=== PATIENT | female | born 1960 | race Caucasian/White ===

== ENCOUNTER → 2018-01-07 12:29 | Outpatient (CLI) | payer BC, SELFPAY ==
--- NOTE | 2018-01-07 12:33 | BI_ITS ---
MAMMOGRAPHY - BILATERAL SCREENING REASON FOR EXAM: Female, 57 years old. Routine annual screening examination. PERTINENT HISTORY: Non-contributory. Prior left breast reduction. Occasional lateral left breast tenderness. TECHNIQUE: Digital bilateral breast elijah (3D mammographic acquisition) in the CC and MLO projections. 2-D mediolateral oblique (MLO) and craniocaudad (CC) views of both breasts were obtained. CAD: Full Field Digital Mammography with Computer Added Detection was performed. COMPARISON: Comparison is made with prior study dated December 12, 2016 and April 23, 2015. FINDINGS: Breast Composition: There are scattered areas of fibroglandular density. There are no dominant masses or suspicious calcifications. Stable small bilateral axillary lymph nodes. No other significant abnormalities are identified. There has been no significant change since the prior study. BI/SCREENING MAMM (CAD), BILAT IMPRESSION: Stable bilateral screening mammogram. Yearly follow-up mammogram recommended. (A) ASSESSMENT CATEGORY: BIRADS Category 2: Benign. A letter regarding these results will be sent to the patient by the facility within 30 days. Approximately 10% of breast cancers are not detected by mammography. A normal mammogram should not delay biopsy of a clinically suspicious abnormality. [id number] Electronically Signed: Lamonte Ontiveros MD at 14:34 EDT Tel [phone], Service support ,
--- NOTE | 2018-01-07 12:33 | BD_ITS ---
STUDY: DUAL ENERGY X-RAY ABSORPTIOMETRY / DXA REASON FOR EXAM: Female, 57 years old. The patient is postmenopausal. Loss of height. TECHNIQUE: Bone Mineral Density (BMD) measurements of lumbar spine and bilateral hips were obtained. COMPARISON: None. FINDINGS: Lumbar Spine (L1-L4): g/cm2 (1.157) / T-score (-0.4) / Z-score (0.6) Findings are suggestive of normal bone density with a low fracture risk. Left Femur Total: g/cm2 (0.996) / T-score (-0.1) / Z-score (0.6) Left Femoral Neck: g/cm2 (0.946) / T-score (-0.7) / Z-score (0.4) Right Femur Total: g/cm2 (1.014) / T-score (0.1) / Z-score (0.8) Right Femoral Neck: g/cm2 (0.946) / T-score (-0.7) / Z-score (0.4) BD/Dexa Bone Density Study IMPRESSION: The patient is considered normal as outlined below according to World Ryan Organization (WHO) criteria with a low fracture risk. Reference Information: The T-score is the number of standard deviations above or below the standard which is normal for young adults at their peak bone mineral density. The World Health Organization (WHO) interprets the T-scores as follows: Above -1 Normal bone density Between -1 and -2.5 Osteopenia Equal to / or below -2.5 Osteoporosis As a practical clinical guideline, osteopenia may be graded as follows: Mild -1 through -1.5 Moderate -1.6 through -2.0 Severe -2.1 through -2.4 The Z-score is the number of standard deviations above or below age-matched controls. A Z-score of less than -1.5 would be considered abnormal. References: 1. NIH Osteoporosis and Related Bone Diseases http://www.osteo.org 2. International Society for Clinical Densitometry http://www.iscd.org 3. National Osteoporosis Foundation http://www.nof.org Electronically Signed: Lamonte Ontiveros MD at 15:27 EDT Tel [phone], Service support ,
== END ==
PROVIDERS: Family Provider Internal Medicine; PCP Internal Medicine; Visit Provider Internal Medicine
DX: Z12.31 Encounter for screening mammogram for malignant neoplasm of breast (principal); Z78.0 Asymptomatic menopausal state
CPT/HCPCS: 77063; 77067; 77080

== ENCOUNTER 2018-07-09 18:50 | Emergency (ER) | payer BC, SELFPAY ==
[2018-07-09 18:50] VITALS: BP 166/93; PULSE 99; RESP 18; TEMP 38.2; O2SAT 98; BMI 34.5
--- NOTE | 2018-07-09 19:16 | CT_ITS ---
STUDY: CT ABDOMEN AND PELVIS WITHOUT CONTRAST REASON FOR EXAM: Female, 58 years old. Right flank pain. Discolored urine. RADIATION DOSAGE (If Supplied By Facility): CTDIvol = ( 18.29 ) mGy, DLP = ( 904.56 ) mGycm TECHNIQUE: Transaxial images were obtained from the dome of the diaphragm to the symphysis pubis without oral contrast, and without intravenous contrast. Sagittal and coronal images were reconstructed. Individualized dose optimization techniques were used for this CT. COMPARISON: None. FINDINGS: The visualized lung bases are unremarkable. The visualized portions of the heart are within normal limits. There is elongation of the right lobe of the liver consistent with a Dakotah's lobe. There is non-visualization of the gallbladder, which may be secondary to either contraction or a prior cholecystectomy. There is mild dilatation of the biliary ductal system suggesting prior cholecystectomy. Normal spleen. Normal pancreas. Normal bilateral adrenal glands. There is a 3 mm nonobstructing calculus in the mid right kidney. The right kidney is otherwise unremarkable. Normal visualized right ureter. Normal left kidney. Normal visualized left ureter. Normal visualized stomach. Normal small intestine. Descending and sigmoid diverticulosis without acute inflammatory change. The proximal colon is unremarkable. There are surgical clips in the region of the appendix consistent with a prior appendectomy. Normal abdominal aorta. Normal inferior vena cava. Normal retroperitoneum. Normal urinary bladder. Normal vaginal cuff. There are phleboliths in the pelvis without lymphadenopathy. No free air or free fluid is seen within the peritoneal cavity. Normal abdominal wall. There are diffuse degenerative changes of the visualized lumbar spine. CT/Abdomen/Pelvis without Cont IMPRESSION: 1. Nonobstructing right renal calculus. There is no other evidence of renal, ureteral or urinary bladder abnormality. 2. Sigmoid diverticulosis without acute inflammatory change. 3. 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 4. Degenerative changes of the lumbar spine. 5. Status post cholecystectomy, hysterectomy and appendectomy. Electronically Signed: Vikram Vásquez DO at 21:15 EST Tel [phone], Service support ,
[2018-07-09 19:22] LABS: Mucous, Urine 0 SEEN /hpf (<or=2+)
[2018-07-09 19:30] LABS: Color, Urine Amber (Yellow); Glucose, Dipstick Normal (Normal); Ketone-Dipstick 5 mg/dl (Negative); Leukocyte Esterase-Dipstick 500 /ul (Negative); Nitrite-Dipstick Positive (Negative); Occult Blood-Urine 250 /ul (Negative); Protein-Dipstick 100 mg/dl (Negative); Urine Bilirubin Dipstick Negative (Negative); Urine Clarity Cloudy (Clear); Urine Urobilinogen 1 mg/dl (Normal)
[2018-07-09] MEDS: 0.9% Normal Saline 1,000 ML 150 ML IV (19:30)
[2018-07-09] MEDS: Acetaminophen 500 MG Tablet 1000 MG PO (19:30)
[2018-07-09] MEDS: Ondansetron 4 MG/2 ML Vial IV (19:31)
[2018-07-09] MEDS: Morphine 4 MG/ML Syringe IV (19:32)
[2018-07-09 19:34] VITALS: BP 151/92; PULSE 89; RESP 20; TEMP 38.2; O2SAT 95
[2018-07-09 19:39] LABS: Bacteria 1+ /hpf (None Seen); Red Blood Cells-Urine 50-100 SEEN /hpf (0-5); Squamous Epithelial Cells - UA 0-5 SEEN /hpf (5-10); White Blood Cells >100 SEEN /hpf (0-5)
[2018-07-09 19:45] LABS: Absolute Lymphocyte Count 1.98 X10^3/ul (0.83-4.51); Absolute Neutrophil Count 10.1 X10^3/uL (2.0-7.7); Basophil# 0.03 X10^3/uL; Basophil% 0.2 % (0-1); Eosinophil# 0.11 X10^3/uL; Eosinophils% 0.8 % (0-5); Hematocrit 44.9 % (37-47); Hemoglobin 14.8 g/dl (12.0-15.0); Lymphocyte # 1.98 X10^3/ul (4.0); Lymphocyte % 15.1 % (19-41); Mean Corpuscular Hgb 30.4 pg (27.0-32.0); Mean Corpuscular Volume 92.2 fL (81-99); Mean Platelet Vol. 10.2 fl (6.2-12.0); Monocyte% 6.1 % (0-10); Neutrophil # 10.12 X10^3/uL (2.7-7.7); Neutrophil % 77.5 % (47-70); Platelet Count 296 K/mm3 (150-450); RBC Distribution Width CV 13.8 % (11.6-14.6); RBC Distribution Width SD 46.4 fl (35.1-43.9); Red Blood Count 4.87 M/mm3 (4.2-5.4); White Blood Count 13.1 K/mm3 (4.4-11.0)
[2018-07-09 19:57] LABS: POSITIVE COUNT NO; POSITIVE DIFFERENTIAL NO; POSITIVE MORPHOLOGY NO
[2018-07-09] MEDS: Ceftriaxone 1 GM/50 ML BAG IV (20:01)
[2018-07-09 20:10] LABS: Anion Gap 7 (5-15); BUN 21 mg/dL (7-18); BUN/Creat Ratio 16.7 RATIO (10-20); Calcium,Total 9.9 mg/dL (8.5-10.1); Chloride 102 mmol/L (98-107); Creatinine, Serum 1.26 mg/dL (0.55-1.02); EST Glomerular Filtration Rate 47 mL/min (>60); Est Glom Filt Rate - Afr Amer 56 mL/min (>60); Estimated Creatinine Clearance 44.33 ml/min; Glucose 127 mg/dL (74-106); Potassium 4.2 mmol/L (3.5-5.1); Sodium Level 137 mmol/L (136-145)
[2018-07-09 21:44] VITALS: BP 109/62; PULSE 75; RESP 16; TEMP 37.6; O2SAT 95
--- NOTE | 2018-07-09 22:06 | ED.DCSUM_ITS ---
- ER Visit Summary Date of Service: 07/09/18 Chief Complaint: Right flank pain History of Present Illness: The patient is a 58 F with bronchitis and URI symptoms over the past 5 days. She developed lower abdominal pain and cramping earlier today. Tonight the pain developed more in the right flank region and she is concerned she has a kidney stone. She does note recent strong odor to her urine. She denies any dysuria. Tonight she noted blood in her urine and a low-grade fever. Physical Examination: Blood pressure is 166/93, temperature 100.7, heart rate 99, respiratory rate 18, pulse ox 98% on room air. Patient is sitting upright in bed. She is nontoxic appearing. Head neck examination unremarkable. Heart is regular rate and rhythm. Lung sounds are clear. Abdomen is soft with minimal tenderness in the right lower quadrant. There is no CVA tenderness on exam. There is no overlying skin change. Test Results: CBC was a white count of 13.1 with 77% neutrophils. Chemistry studies reveal glucose of 127, BUN 21, creatinine 1.26. Urinalysis is positive for nitrites, greater than 100 white cells, 50-100 RBCs, and 1+ bacteria. CT flank shows nonobstructing right renal calculi. There is no ureteral or bladder abnormality. Emergency Department Course and Treatment: Patient was given morphine, Zofran, Tylenol, and IV fluids. Upon completion of the urinalysis she is given a dose of IV Rocephin. Urine was sent for a culture. She is treated with a 10-day course of Bactrim. Blood pressure at time of discharge is 118/75. Treatment Plan: [] Disposition: Discharge Impression: Pyelonephritis This note was generated with [employer] dictation software. It may contain incorrect words, spelling, and punctuation that were not noted in review of the chart prior to signing ED Disposition - Plan for ED Patient: Disposition: Home or Assisted Living Chief Complaint: Flank Pain Instructions: ED Kidney Infec Female Prescriptions: Smz/Tmp Ds [Bactrim Ds] 1 tablet PO BID #20 tablet Referrals: Dominique Haynes DO [Primary Care Provider] - 5-7 Days
[2018-07-09 22:20] VITALS: BP 118/75; PULSE 82; RESP 18; O2SAT 93
== END 2018-07-09 22:20 | disposition home or self-care (01) ==
PROVIDERS: Emergency Provider Emergency Medicine; Family Provider Internal Medicine; PCP Internal Medicine
DX: N12 Tubulo-interstitial nephritis, not specified as acute or chronic (principal); Z87.442 Personal history of urinary calculi
CPT/HCPCS: 74176; 80048; 81001; 85025; 87086; 87088; 87186; 96361; 96365; 96375; 99285; J7030; J7040; A4216; J2405

== ENCOUNTER 2018-12-07 11:37 | Emergency (ER) | payer BC, SELFPAY ==
[2018-12-07 11:38] VITALS: BP 132/83; PULSE 88; RESP 16; TEMP 36.6; O2SAT 96; BMI 34.3
--- NOTE | 2018-12-07 13:04 | RAD_ITS ---
STUDY: X-RAY - RIGHT ANKLE REASON FOR EXAM: Female, 58 years old. Pain, no injury TECHNIQUE: 3 view(s) of the ankle. COMPARISON: None. FINDINGS: Normal visualized distal tibia and fibula. Normal medial and lateral malleoli. Normal tibiotalar articulation and ankle mortise. Normal visualized talus and calcaneus. There is calcaneal enthesopathy. The visualized subtalar, talonavicular, calcaneocuboid and tarsal articulations are normal. The soft tissue structures are unremarkable. RAD/Ankle min 3 Views IMPRESSION: No fracture or dislocation Electronically Signed: Torito Cartagena, at 13:40 EDT Tel , Service support ,
--- NOTE | 2018-12-07 14:05 | ED.VISSUMM ---
- ER Visit Summary Date of Service: 12/07/18 Chief Complaint: Right ankle pain History of Present Illness: The patient is a 58 F who presents the emergency department with 1 month of an ache in her anterior right ankle. She states that today it became more sharp. Spencer like a knife. She has appoint with her brass sorter on but could not wait that she was concerned that she may get this pain while driving. She has a history of a bone spur on the left ankle. She sees podiatry in [place]. Physical Examination: Afebrile vital signs are stable Gen: Well-nourished well-developed Head: Normocephalic atraumatic Eyes: Perrl EOMI ENT: TMs clear no rhinorrhea moist mucous membranes Neck: Supple no lymphadenopathy no JVD nontender CVS: Regular rate rhythm no murmurs normal S1-S2 Respiratory: No distress clear to auscultation bilaterally chest nontender Abdomen: Soft nontender nondistended normal bowel sounds no masses Back: Nontender Extremity: Nontender no edema no deformities. No ecchymosis. Tendon function appears normal. She has no pain with movement against resistance with inversion eversion flexion or extension. Skin: Normal color no rash Neuro: alert orientated ?3 CN II-XII intact normal strength sensation reflexes gait cerebellar Psych: Normal affect normal mood Test Results: X-rays of the ankle were negative. I see no bone spurs. No significant arthritic changes Emergency Department Course and Treatment: I informed the patient of her findings on x-ray. She states that she would like to be discharged that she called her brass sorter from the emergency room and they said they could see her sooner she was discharged. Impression: 1. Right ankle pain This note was generated with [employer] dictation software. It may contain incorrect words, spelling, and punctuation that were not noted in review of the chart prior to signing ED Disposition - Plan for ED Patient: Disposition: Home or Assisted Living Instructions: ED Joint Pain Additional Instructions: Follow-up with your brass sorter as scheduled
== END 2018-12-07 14:13 | disposition home or self-care (01) ==
PROVIDERS: Emergency Provider Emergency Medicine; Family Provider Internal Medicine; PCP Internal Medicine
DX: M25.571 Pain in right ankle and joints of right foot (principal)
CPT/HCPCS: 73610; 99282

== ENCOUNTER → 2019-03-21 12:02 | Outpatient (CLI) | payer BC, SELFPAY ==
--- NOTE | 2019-03-21 12:04 | BI_ITS ---
MAMMOGRAPHY - BILATERAL SCREENING REASON FOR EXAM: Female, 58 years old. Routine annual screening examination. PERTINENT HISTORY: Non-contributory. Remote left breast reduction. TECHNIQUE: Digital bilateral breast lv (3D mammographic acquisition) in the CC and MLO projections. 2-D mediolateral oblique (MLO) and craniocaudad (CC) views of both breasts were obtained. CAD: Full Field Digital Mammography with Computer Added Detection was performed. COMPARISON: Comparison is made with prior study dated January 07, 2018 and December 12, 2016. FINDINGS: Breast Composition: There are scattered areas of fibroglandular density. There are no dominant masses or suspicious calcifications. No other significant abnormalities are identified. There has been no significant change since the prior study. BI/SCREEN MAMM (CAD) W/LV BILAT IMPRESSION: Stable bilateral screening mammogram. Yearly follow-up mammogram recommended. (A) ASSESSMENT CATEGORY: BIRADS Category 1: Negative. A letter regarding these results will be sent to the patient by the facility within 30 days. Approximately 10% of breast cancers are not detected by mammography. A normal mammogram should not delay biopsy of a clinically suspicious abnormality. [id number] Electronically Signed: Lamonte Ontiveros, at 13:41 EDT , Service support ,
== END ==
PROVIDERS: Family Provider Internal Medicine; PCP Internal Medicine; Referring Provider Internal Medicine; Visit Provider Internal Medicine
DX: Z12.31 Encounter for screening mammogram for malignant neoplasm of breast (principal)
CPT/HCPCS: 77063; 77067

== ENCOUNTER 2019-06-03 16:00 | Outpatient (RCR) | payer OTHER, BC, SELFPAY ==
[2019-05-05 15:16] VITALS: BMI 35.9
--- NOTE | 2019-05-16 17:39 | HP.PTEVAL_ITS ---
Patient's Visit Information NEREIDA CLAROS is a 59 year old F referred to Physical Therapy by ELDER Almaraz with a diagnosis of STRAIN OF MUSCEL AND TENDON OF UNSPECIFIED WALL OF THORAX. Date of Evaluation: 05/16/19 Physical Therapist: Ehsan Vaughan, PT, Cert MDT, OCS - Visit Plan Frequency: 3x /Week Duration: 4 Weeks Plan: PT INTERVENTIONS WITH THORACIC /POSTURAL EX'S,SCAPULAR STRENGTHENING,MODALTIES FOR PAIN ,MANUAL THERAPY - Subjective Findings: This 59 y/o female presents to physical therapy with strain of thoracic. Patient injuried upper back lifting tubs of meat on 04/04/19 . Symptoms became worse overtime at work eventually seen PA at [facility] on 04/21/19 provided muscle relaxers and naprozan. Then RTD on 05/05/19 recommended PT. Patient is on light duty no lifting miore than 10 # . Location left scapular of thoracic spine. Aggravating factors lifting to included OH/reaching and moving arm with pinching.Allevating factors MEDS. Unable to sleep on left side,thus symptoms affects sleeping. Patienthas parathesia scapular. Patient pain affects ability to return to work and ADL'S. Patient pain affects QOL and funtion. SOCIAL: . VOCATION: [employer] - Pain Back Pain Intensity (Out of 10): 7 Comment: thoracic Left Scapula Pain Intensity (Out of 10): 7 Pain Intensity Range: 10 - Objective POSTURE: mild posture rounded shoulders. NEURU: denies parathesia/tingling ,reflexes C5-6-7 2/3. PALPATION: tender medial scapular. CERVICAL ROM: flexion WFL,extension min loss,rotation min loss,lateral flexion min loss with pain on left UT]. AROM: shoulder flexion WFL 155 degrees. MMT: GROSSLY 4/5 except shoulder 4-/5 ,pian left scapular. THORACIC ROM: flexion mod loss,extension /rotation mod loss - Special Tests C/S Radiculapathy - Left Upper limb tension test: Negative C/S Radiculapathy - Right Upper limb tension test: Negative C/S Radiculapathy - Left Spurlings: Positive C/S Radiculapathy - Right Spurlings: Negative C/S Radiculapathy - Left Cervical distraction: Negative C/S Radiculapathy - Right Cervical distraction: Negative L Shoulder Drop Sign - IS Test: Negative L Shoulder Empty Can - SS: Negative L Shoulder Neer - Impingement: Negative L Shoulder Franco Carter - Impingement: Negative - Goals Goal 1:: Patient to be Independant with HEP Goal Time Frame: 4-6 Weeks Goal 2:: Patient to decrease left scapular and thoracic pain by 60% or> to imporove function RTW Goal Time Frame: 4-6 Weeks Goal 3:: Patient to increase strength of left shoulder 4/5 to improve function without pain. Goal Time Frame: 4-6 Weeks Goal 4:: Patient to improve spine owestry scor by 5-10 pints to improve QOL for RTW. Goal Time Frame: 4-6 Weeks Goal 5:: Patient to RTW without limitations Goal Time Frame: 4-6 Weeks - Rehabilitation Potential Physical Therapy Diagnosis: This patient fas left thoracic stain affecting left UE with job demands,lifting due to mpain weakness of left arm thus unable to RTW full duty Rehabilitation Potential: Good - Anticipated Interventions Patient/Client Instruction: Educate patient on: Condition, Plan of Care For the Purpose of:: To decrease pain, To increase ROM, To improve muscle performance and motor function, To improve ability to perform ADL's, To increase tolerance to activity/condition/position, To improve ability of physical actions for home/community/work/leisure, To improve health of tissue, To decrease soft tissue restriction, To increase flexibility/ROM, To improve ability to perform tasks related to life management Therapeutic Exercise to Include: Strength training, Postural training, Fl exibilty training, Active ROM, Scapular Strength/Stabilization For the Purpose of:: To decrease pain, To increase ROM, To improve muscle performance and motor function, To improve ability to perform ADL's, To increase tolerance to activity/condition/position, To improve ability of physical actions for home/community/work/leisure, To improve health of tissue, To decrease soft tissue restriction, To increase flexibility/ROM, To reduce risk of recurrence Manual Therapy Techniques to Include: Soft tissue mobilization Comment: SCAPULAR /UT For the Purpose of:: To decrease pain, To increase ROM, To improve nutrient delivery to tissue, To increase oxygenation perfusion, To improve health of tissue, To decrease soft tissue restriction TENS: Yes IF ES: Yes Cryotherapy (ice pack, ice massage): Yes Thermo therapy (hot pack): Yes Ultrasound (thermal/non thermal): Yes For the Purpose of:: To decrease pain, To decrease swelling/inflammation, To increase ROM, To improve nutrient delivery to tissue, To increase oxygenation perfusion, To improve health of tissue, To decrease soft tissue restriction Thank you for the opportunity to evaluate your patient. For Medicare and Medicare HMO plans, please review the plan of care and approve it. It will need to be FAXED BACK to us at [phone] for Medicare purposes. For Medicare only, by signing this I certify the plan of care. Please let me know if there are questions or concerns regarding this plan of care. Physician Signature: Date:
--- NOTE | 2019-06-07 10:32 | HP.PTDCSUM ---
HP - PT D/C Summary It has been my pleasure to treat NEREIDA CLAROS under orders from ELDER Almaraz, for the diagnosis of STRAIN OF MUSCLE AND TENDON OF UNSPECIFIED WALL OF THORAX for a total of 6 visit(s). Discharge Date: 06/07/19 Please see the following information for a summary of their discharge status. - Subjective Subjective: pt discussed w/ PT that this is her last session er the DR. pt filled out the DASH report. - Pain Back Pain Intensity (Out of 10): 0 Left Scapula Pain Intensity (Out of 10): 0 - Overall Improvement % Improvement: 80 - Objective Objective/Function: POSTURE: WFL. AROM: WNL. MMT: R -SHOULDER 4/5. THORACIC ROM: WFL - Goals Goal 1:: Patient to be Independant with HEP Goal Progress: Goal Met Goal 2:: Patient to decrease left scapular and thoracic pain by 60% or> to imporove function RTW Goal Progress: Goal Met Goal 3:: Patient to increase strength of left shoulder 4/5 to improve function without pain. Goal Progress: Goal Met Goal 4:: Patient to improve spine owestry scor by 5-10 pints to improve QOL for RTW. Goal Progress: Goal Met Goal 5:: Patient to RTW without limitations Goal Progress: Goal Met - Plan Plan: D/C RTW - D/C Information Discharge Comments: HEP RTW If there are questions or concerns regarding this patient's physical therapy, please feel free to call me at [phone]. Thank you for the referral of this patient. Sincerely, Ehsan Vaughan, PT, Cert MDT, OCS
== END 2019-06-03 19:00 | disposition home or self-care (01) ==
LOC: PT 16:00
PROVIDERS: Family Provider Internal Medicine; PCP Internal Medicine; Referring Provider Physician Assistant; Visit Provider Physician Assistant
DX: S29.019D Strain of muscle and tendon of unspecified wall of thorax, subsequent encounter (principal)
CPT/HCPCS: 97014; 97110; 97162; G0283

== ENCOUNTER → 2020-05-31 15:25 | Outpatient (CLI) | payer BC, SELFPAY ==
[2019-09-12 15:55] VITALS: BMI 34.3
--- NOTE | 2020-05-31 15:29 | BI_ITS ---
MAMMOGRAPHY - BILATERAL SCREENING REASON FOR EXAM: Female, 60 years old. Routine annual screening examination. PERTINENT HISTORY: Non-contributory. History of prior left breast reduction surgery. TECHNIQUE: Digital bilateral breast lv (3D mammographic acquisition) in the CC and MLO projections. 2-D mediolateral oblique (MLO) and craniocaudad (CC) views of both breasts were obtained. CAD: Full Field Digital Mammography with Computer Added Detection was performed. COMPARISON: Comparison is made with prior examination dated 03/21/2019 and 01/07/2018. FINDINGS: Breast Composition: There are scattered areas of fibroglandular density. There are no dominant masses or suspicious calcifications. Stable asymmetry of breast tissue were more breast tissue is seen in the retroareolar region of the left breast as compared to the right side. Stable calcification in the retroareolar region of the left breast. No other significant abnormalities are identified. There has been no significant change since the prior study. BI/SCREEN MAMM (CAD) W/LV BILAT IMPRESSION: Stable bilateral screening mammogram. Yearly follow-up mammogram recommended. (A) ASSESSMENT CATEGORY: BIRADS Category 2: Benign. A letter regarding these results will be sent to the patient by the facility within 30 days. Approximately 10% of breast cancers are not detected by mammography. A normal mammogram should not delay biopsy of a clinically suspicious abnormality. [id number] Electronically Signed: Lamonte Ontiveros, at 8:07 EST , Service support ,
--- NOTE | 2020-05-31 15:53 | BD_ITS ---
STUDY: DUAL ENERGY X-RAY ABSORPTIOMETRY / DXA REASON FOR EXAM: Female, 60 years old. FURNITURE MOVER -- TAKES DIURETIC IN [facility] -- DOES MODERATE AMOUNT OF EXERCISE -- FAMILY HX OF OSTEO- MOTHER -- PRITI OF 1 INCH TECHNIQUE: Bone Mineral Density (BMD) measurements of lumbar spine and bilateral hips were obtained. COMPARISON: Comparison is made with prior study dated 06/11/2004. FINDINGS: Lumbar Spine (L1-L4): g/cm2 (1.214) / T-score (0.1) / Z-score (1.2) Findings are suggestive of normal bone density with a low fracture risk. Left Femur Total: g/cm2 (0.961) / T-score (-0.4) / Z-score (0.5) Left Femoral Neck: g/cm2 (0.918) / T-score (-0.9) / Z-score (0.3) Right Femur Total: g/cm2 (0.964) / T-score (-0.3) / Z-score (0.5) Right Femoral Neck: g/cm2 (0.932) / T-score (-0.8) / Z-score (0.4) The T-Scores on the most recent prior examination were: Lumbar Spine (L1-L4): There has been improvement of bone density since the previous examination. Left Femur Total: which represents a worsening of 3.5%. Right Femur Total: which represents a worsening of 4.9%. BD/Dexa Bone Density Study IMPRESSION: The patient is considered normal as outlined below according to World Ryan Organization (WHO) criteria with a low fracture risk. There has been worsening of bone density since the previous examination. Reference Information: The T-score is the number of standard deviations above or below the standard which is normal for young adults at their peak bone mineral density. The World Health Organization (WHO) interprets the T-scores as follows: Above -1 Normal bone density Between -1 and -2.5 Osteopenia Equal to / or below -2.5 Osteoporosis As a practical clinical guideline, osteopenia may be graded as follows: Mild -1 through -1.5 Moderate -1.6 through -2.0 Severe -2.1 through -2.4 The Z-score is the number of standard deviations above or below age-matched controls. A Z-score of less than -1.5 would be considered abnormal. References: 1. NIH Osteoporosis and Related Bone Diseases www osteo.org 2. International Society for Clinical Densitometry www iscd.org 3. National Osteoporosis Foundation www nof.org Electronically Signed: Lamonte Ontiveros, at 12:12 EST , Service support ,
== END ==
PROVIDERS: PCP Internal Medicine; Referring Provider Internal Medicine; Visit Provider Internal Medicine
DX: Z12.31 Encounter for screening mammogram for malignant neoplasm of breast (principal); Z78.0 Asymptomatic menopausal state
CPT/HCPCS: 77063; 77067; 77080

== ENCOUNTER → 2022-04-03 | Outpatient (CLI) | payer BC, SELFPAY ==
--- NOTE | 2022-04-03 14:24 | BI_ITS ---
MAMMOGRAPHY - BILATERAL SCREENING 3-D TOMOSYNTHESIS REASON FOR EXAM: Female, 62 years old. SCREENING PERTINENT HISTORY: No significant family history. TECHNIQUE: 2-D mammograms and 3-D Tomosynthesis of the breast (s) were performed. CAD was performed. COMPARISON: 05/31/2020 FINDINGS: The breast composition is heterogeneously dense that can obscure small breast masses. Scattered benign calcifications are seen. No dense spiculated masses or suspicious microcalcifications are identified. No architectural distortion is identified. There is no skin thickening or retraction. There has been no significant change since the prior study. BI/SCRN MAMM (CAD)W/LV BILAT IMPRESSION: No mammographic signs of malignancy. Routine yearly mammograms recommended. ASSESSMENT CATEGORY: BIRADS Category 1: Negative. A letter regarding these results will be sent to the patient by the facility within 30 days. FOLLOW UP RECOMMENDATION: Yearly follow up mammogram recommended. (A) Approximately 10% of breast cancers are not detected by mammography. A normal mammogram should not delay biopsy of a clinically suspicious abnormality. Electronically Signed: Jorge Luis Land MD at 16:13 EDT ,
== END | disposition home or self-care (01) ==
PROVIDERS: PCP Internal Medicine; Visit Provider Internal Medicine
DX: Z12.31 Encounter for screening mammogram for malignant neoplasm of breast (principal)
CPT/HCPCS: 77063; 77067

== ENCOUNTER → 2024-07-12 | Outpatient (CLI) | payer OTHER, SELFPAY ==
--- NOTE | 2024-07-12 14:54 | BI_ITS ---
MAMMOGRAPHY - BILATERAL SCREENING 3-D TOMOSYNTHESIS REASON FOR EXAM: Female, 64 years old. bilateral mammo - screening -- bilateral mammo - screening PERTINENT HISTORY: No significant family history. TECHNIQUE: 2-D mammograms and 3-D Tomosynthesis of the breast (s) were performed. CAD was performed. COMPARISON: 04/03/2022 FINDINGS: The breast composition is composed of scattered fibroglandular density. Scattered benign calcifications are seen. No dense spiculated masses or suspicious microcalcifications are identified. No architectural distortion is identified. There is no skin thickening or retraction. There has been no significant change since the prior study. BI/SCRN MAMM (CAD)W/LV BILAT IMPRESSION: No mammographic signs of malignancy. Routine yearly mammograms recommended. ASSESSMENT CATEGORY: BIRADS Category 1: Negative. A letter regarding these results will be sent to the patient by the facility within 30 days. FOLLOW UP RECOMMENDATION: Yearly follow up mammogram recommended. (A) Approximately 10% of breast cancers are not detected by mammography. A normal mammogram should not delay biopsy of a clinically suspicious abnormality. Electronically Signed: Jorge Luis Land MD at 19:57 EST ,
--- NOTE | 2024-07-12 14:57 | BD_ITS ---
STUDY: DUAL ENERGY X-RAY ABSORPTIOMETRY / DXA REASON FOR EXAM: Female, 64 years old. Postmenopausal screening TECHNIQUE: Bone Mineral Density (BMD) measurements of lumbar spine and bilateral hips were obtained. COMPARISON: 2017 FINDINGS: Lumbar Spine (L1-L4): g/cm2 (0.995) / T-score (-0.5) / Z-score (1.2) Bone mineral density in the lumbar spine has decreased by 6% since the most recent study Left Femur Total: g/cm2 (0.873) / T-score (-0.6) / Z-score (0.6) Left Femoral Neck: g/cm2 (0.701) / T-score (-1.3) / Z-score (0.1) Right Femur Total: g/cm2 (0.889) / T-score (-0.4) / Z-score (0.7) Right Femoral Neck: g/cm2 (0.753) / T-score (-0.9) / Z-score (0.6) Bone mineral density of the left femur has decreased by 2.6% since the previous study, the right femur has decreased by 1.1% BD/Dexa Bone Density Study IMPRESSION: The patient is considered osteopenic as outlined below according to World Ryan Organization (WHO) criteria with a moderate fracture risk. 10 year fracture risk: Major osteoporotic fracture 7%, hip fracture 0.4% Reference Information: The T-score is the number of standard deviations above or below the standard which is normal for young adults at their peak bone mineral density. The World Health Organization (WHO) interprets the T-scores as follows: Above -1 Normal bone density Between -1 and -2.5 Osteopenia Equal to / or below -2.5 Osteoporosis As a practical clinical guideline, osteopenia may be graded as follows: Mild -1 through -1.5 Moderate -1.6 through -2.0 Severe -2.1 through -2.4 The Z-score is the number of standard deviations above or below age-matched controls. A Z-score of less than -1.5 would be considered abnormal. References: 1. NIH Osteoporosis and Related Bone Diseases www osteo.org 2. International Society for Clinical Densitometry www iscd.org 3. National Osteoporosis Foundation www nof.org Electronically Signed: Brian Flores MD at 15:20 EST ,
== END | disposition home or self-care (01) ==
PROVIDERS: PCP Internal Medicine; Referring Provider Internal Medicine; Visit Provider Internal Medicine
DX: Z13.820 Encounter for screening for osteoporosis (principal); Z78.0 Asymptomatic menopausal state; Z12.31 Encounter for screening mammogram for malignant neoplasm of breast
CPT/HCPCS: 77063; 77067; 77080

== ENCOUNTER → 2025-01-26 | Outpatient (CLI) | payer OTHER, SELFPAY ==
[2025-01-26 11:10] LABS: Hematocrit 40.2 % (37-47); Hemoglobin 13.9 g/dL (12.0-15.0); Immature Granulocytes Count 0.040 X10^3/uL (0.0-0.0); Mean Corp Hgb Conc 34.6 g/dL (32-36); Mean Corpuscular Volume 89.3 fL (81-99); Mean Platelet Vol. 10.4 fl (6.2-12.0); NRBC Flagged by Analyzer 0 % (0-5); Platelet Count 234 K/mm3 (150-450); RBC Distribution Width CV 13.3 % (11.6-14.6); RBC Distribution Width SD 43.8 fl (35.1-43.9); Red Blood Count 4.50 M/mm3 (4.2-5.4); White Blood Count 5.8 K/mm3 (4.4-11.0)
[2025-01-31 04:07] LABS: Ash, White <0.10 kU/L (Class 0); Black Walnut <0.10 kU/L (Class 0); Cat Hair / Dander,Stand <0.10 kU/L (Class 0); Cedar, Mountain <0.10 kU/L (Class 0); Cockroach, American <0.10 kU/L (Class 0); Dog Epithelia <0.10 kU/L (Class 0); Elm, American White <0.10 kU/L (Class 0); Mulberry, White <0.10 kU/L (Class 0); Oak, White <0.10 kU/L (Class 0); Pigweed, Rough <0.10 kU/L (Class 0); Ragweed, Short/Common <0.10 kU/L (Class 0); Sycamore, American <0.10 kU/L (Class 0)
[2025-01-31 16:09] LABS: Aspirgillus flavus Negative (Neg:<1:1); Aspirgillus fumigatus Negative (Neg:<1:1); Aspirgillus niger Negative (Neg:<1:1)
== END | disposition home or self-care (01) ==
LOC: PAVLAB 10:58
PROVIDERS: PCP Internal Medicine; Referring Provider Internal Medicine Critical Care Medicine; Visit Provider Internal Medicine Critical Care Medicine
DX: J45.909 Unspecified asthma, uncomplicated (principal)
CPT/HCPCS: 36415; 82785; 85025; 86003; 86606

== ENCOUNTER → 2025-02-01 | Outpatient (CLI) | payer OTHER, SELFPAY | END | disposition home or self-care (01) | PROVIDERS: PCP Internal Medicine; Referring Provider Internal Medicine Critical Care Medicine; Visit Provider Internal Medicine Critical Care Medicine | DX: J45.909 Unspecified asthma, uncomplicated (principal) | CPT/HCPCS: 94060; 94726; 94729 ==

== ENCOUNTER → 2025-02-10 | Outpatient (CLI) | payer OTHER, SELFPAY ==
[2025-02-10 08:32] VITALS: PULSE 64; PULSE 68; PULSE 87; PULSE 88; PULSE 90; PULSE 91; PULSE 92; PULSE 93; O2SAT 96; O2SAT 97; O2SAT 98
--- NOTE | 2025-02-15 08:56 | PCM.PSN.6M ---
PSN 6 Minute Walk Test 6 Minute Walk Test 6 Minute Walk Test: 6 Minute Walk Test PSN:6-Minute Walk Test Start: 02/10/25 08:31 Freq: Status: Active Protocol: [id number] Document 02/10/25 08:32 GEOFFREY (Rec: 02/10/25 08:33 GEOFFREY [id number]) 6 Minute Walk Test Date Performed 02/10/25 Time Performed 08:15 Height 5 ft 4 in Weight: 211 lb Weight in Pounds [address]: [employer] Assistive device None used: Pre-test Oxygen Delivery Room Air Method Pulse Ox (%) 97 Pulse Rate (60-100 64 beats/min) Dyspnea Leonarda Scale ( 0 0-10) Exertion Leonarda Scale 6 (6-20) 1st minute Oxygen Delivery Room Air Method Pulse Ox (%) 96 Pulse Rate (60-100 87 beats/min) 2nd minute Oxygen Delivery Room Air Method Pulse Ox (%) 96 Pulse Rate (60-100 88 beats/min) 3rd minute Oxygen Delivery Room Air Method Pulse Ox (%) 96 Pulse Rate (60-100 91 beats/min) 4th minute Oxygen Delivery Room Air Method Pulse Ox (%) 97 Pulse Rate (60-100 90 beats/min) 5th minute Oxygen Delivery Room Air Method Pulse Ox (%) 97 Pulse Rate (60-100 92 beats/min) 6th minute Oxygen Delivery Room Air Method Pulse Ox (%) 97 Pulse Rate (60-100 93 beats/min) Dyspnea Leonarda Scale ( 3 0-10) Exertion Leonarda Scale 12 (6-20) Post-test Oxygen Delivery Room Air Method Pulse Ox (%) 98 Pulse Rate (60-100 68 beats/min) Full Laps Walked 22 Partial Lap, Number 0 of Tiles Walked Total Distance 1298 Walked (ft) Interpretation Interpretation: The patient ambulated 1298 feet over the course of 6 minutes beginning on room air without assistive devices. Pretesting oxygen saturation was noted to be 97% on room air. With ambulation, the [place] oxygen saturation was 96%. There was no significant exertional oxygen desaturation. Recommendations Recommendations: There is no indication for the use of supplemental oxygen at this time.
== END | disposition home or self-care (01) ==
LOC: PSN 08:08
PROVIDERS: PCP Internal Medicine; Referring Provider Internal Medicine Critical Care Medicine; Visit Provider Internal Medicine Critical Care Medicine
DX: J45.909 Unspecified asthma, uncomplicated (principal)
CPT/HCPCS: 94618